=== PATIENT | female | born 1985 | race American Indian/Alaskan Native ===

== ENCOUNTER 2020-06-17 13:05 | Emergency (ER) | payer MEDICAID, OTHER ==
[2020-06-17 16:12] VITALS: BP 154/79
[2020-06-17 17:40] LABS: Bacteria,Urine 4+ /HPF (Negative); Bilirubin,Urine NEG (Negative); Blood,Urine LG (Negative); Color,Urine Yellow (Yellow); Mucus,Urine 3+ /HPF
[2020-06-17 17:45] LABS: HCG Qualitative,Urine Negative (Negative)
[2020-06-17] MEDS ORDERED: LIDOCAINE-MPF (1%) 10 MG/1 ML VIAL 5 ML INFILTRATI ONE (20:13)
--- NOTE | 2020-06-17 20:18 | Emergency Department Report ---
ED Female HPI - General Chief complaint: Urogenital-Female Stated complaint: STOMACH PAIN Time Seen by Provider: 06/17/20 20:07 Source: patient Mode of arrival: Ambulatory Limitations: No Limitations - History of Present Illness Initial comments: Patient is a 34-year-old female presents emergency room with complaints of a UTI. Patient states that she was seen at urgent care on 05/15/2020 and given antibiotics at that time. She states that her symptoms did not improve so she returned to urgent care and had a change in antibiotics and states that she completed those as well. She states beginning 3 days ago she began to have urinary symptoms again. She has associated dysuria, urinary frequency, odor to her urine, lower abdominal pain, lower back pain. She denies any fever, nausea, vomiting, diarrhea, vaginal discharge, itching, burning. She states that she has not been sexually active in approximately 3 months but 3 months ago she was sexually active without protection. No past medical history. No allergies to medications. - Related Data Previous Rx's Medication Instructions Recorded Last Taken Type Ciprofloxacin HCl [Ciprofloxacin 500 mg PO BID 7 Days #28 tablet 06/17/20 Unknown Rx TAB] Doxycycline Hyclate [Doxycycline 100 mg PO BID 7 Days #14 tab 06/17/20 Unknown Rx Hyclate TAB] Allergies Allergy/AdvReac Type Severity Reaction Status Date / Time No Known Allergies Allergy Unverified 06/17/20 16:12 ED Review of Systems ROS: Stated complaint: STOMACH PAIN Other details as noted in HPI Comment: All other systems reviewed and negative ED Past Medical Hx - Past Medical History Previous Medical History?: No - Medications Home Medications: Home Medications Medication Instructions Recorded Confirmed Last Taken Type Ciprofloxacin HCl [Ciprofloxacin 500 mg PO BID 7 Days #28 tablet 06/17/20 Unknown Rx TAB] Doxycycline Hyclate [Doxycycline 100 mg PO BID 7 Days #14 tab 06/17/20 Unknown Rx Hyclate TAB] ED Physical Exam - General Limitations: No Limitations General appearance: alert, in no apparent distress - Head Head exam: Present: atraumatic, normocephalic - Eye Eye exam: Present: normal appearance - ENT ENT exam: Present: mucous membranes moist - Respiratory Respiratory exam: Present: normal lung sounds bilaterally. Absent: respiratory distress, wheezes, rales, rhonchi, stridor, chest wall tenderness, accessory muscle use, decreased breath sounds, prolonged expiratory - Cardiovascular Cardiovascular Exam: Present: regular rate, normal rhythm, normal heart sounds. Absent: systolic murmur, diastolic murmur, rubs, gallop - GI/Abdominal GI/Abdominal exam: Present: soft, normal bowel sounds. Absent: distended, tenderness, guarding, rebound, rigid - Neurological Exam Neurological exam: Present: alert, oriented X3 - Psychiatric Psychiatric exam: Present: normal affect, normal mood - Skin Skin exam: Present: warm, dry, intact ED Course Vital Signs 06/17/20 06/17/20 16:08 21:00 Temperature 98.7 F Pulse Rate 88 72 Respiratory 18 15 Rate Blood Pressure 154/79 [Right] O2 Sat by Pulse 100 97 Oximetry ED Medical Decision Making - Lab Data Lab Results 06/17/20 Range/Units 16:49 Urine Color Yellow (Yellow) Urine Turbidity Cloudy (Clear) Urine pH 5.0 (5.0-7.0) Ur Specific Crane 1.018 (1.003-1.030) Urine Protein 30 mg/dl (Negative) mg/dL Urine Glucose (UA) 150 (Negative) mg/dL Urine Ketones 20 (Negative) mg/dL Urine Blood Lg (Negative) Urine Nitrite Neg (Negative) Urine Bilirubin Neg (Negative) Urine Urobilinogen 4.0 (<2.0) mg/dL Ur Leukocyte Esterase Lg (Negative) Urine WBC (Auto) 43.0 H (0.0-6.0) /HPF Urine RBC (Auto) 19.0 (0.0-6.0) /HPF U Epithel Cells (Auto) 5.0 (0-13.0) /HPF Urine Bacteria (Auto) 4+ (Negative) /HPF Urine Mucus 3+ /HPF Urine HCG, Qual Negative (Negative) - Medical Decision Making Patient is a 34-year-old female presents emergency room with complaints of a UTI. Patient states that she was seen at urgent care on 05/15/2020 and given antibiotics at that time. She states that her symptoms did not improve so she returned to urgent care and had a change in antibiotics and states that she completed those as well. She states beginning 3 days ago she began to have urinary symptoms again. She has associated dysuria, urinary frequency, odor to her urine, lower abdominal pain, lower back pain. She denies any fever, nausea, vomiting, diarrhea, vaginal discharge, itching, burning. She states that she has not been sexually active in approximately 3 months but 3 months ago she was sexually active without protection. No past medical history. No allergies to medications. No normality on physical exam as documented in chart. Vitals are stable. Patient does not know the name of antibiotics that she took previously. UA shows evidence of UTI. Urine is negative. Given that patient has had recurrent UTIs, she had unprotected intercourse previously, could be secondary to STDs, she is not having any pelvic pain or vaginal discharge, she declines pelvic examination at this time but states that she would like prophylactic treatment. Patient given ceftriaxone while in the emergency department. Patient given prescription for doxycycline and ciprofloxacin. Advised patient Please increase your water intake. Please take medication as prescribed. Please take probiotics [id number] and eat yogurt. Follow-up with a primary care doctor. Follow-up with urologist. You need to have a repeat urine sample performed as an outpatient for clearance of bacteria. Return to emergency room for any new or worsening symptoms. Critical care attestation.: If time is entered above; I have spent that time in minutes in the direct care of this critically ill patient, excluding procedure time. ED Disposition Clinical Impression: Frequent UTI Disposition: [id number] TO HOME OR SELFCARE Is pt being admited?: No Does the pt Need Aspirin: No Condition: Stable Instructions: Urinary Tract Infection, Adult, [id number] Additional Instructions: Please increase your water intake. Please take medication as prescribed. Please take probiotics [id number] and eat yogurt. Follow-up with a primary care doctor. Follow-up with urologist. You need to have a repeat urine sample performed as an outpatient for clearance of bacteria. Return to emergency room for any new or worsening symptoms. Prescriptions: Ciprofloxacin HCl [Ciprofloxacin TAB] 500 mg PO BID 7 Days #28 tablet Doxycycline Hyclate [Doxycycline Hyclate TAB] 100 mg PO BID 7 Days #14 tab Referrals: PRIMARY CARE, [Primary Care Provider] - 2-3 Days CONG HART MD [Staff Physician] - 2-3 Days YAA OSMAN MD [Staff Physician] - 2-3 Days MACK KIM MD [Staff Physician] - 2-3 Days Time of Disposition: 20:16 Print Language: TAJIK
== END 2020-06-17 21:00 | disposition home or self-care (01) ==
LOC: ED 13:05
DX: N39.0 Urinary tract infection, site not specified (principal); Z79.899 Other long term (current) drug therapy
CPT/HCPCS: 81001; 81025; 87086; 96372; 99283; J0696; 87076; 87186